=== PATIENT | female | born 1950 | race Caucasian/White ===

== ENCOUNTER 2017-12-27 07:48 | Day surgery (SDC) | payer OTHER ==
[2017-12-27 08:11] VITALS: BMI 31.0
[2017-12-27 08:35] VITALS: TEMP 97.8; O2SAT 100
[2017-12-27] MEDS ORDERED: Lactated Ringer's 500 ML IV SCH (10:15)
--- NOTE | 2017-12-27 10:17 | CP.SDSHP ---
Same Day Surgery H & P - History Proposed Procedure: COLONSCOPY Pre-Op Diagnosis: SEE NOTES - Previous Medical/Surgical History Cardiac: Hypertension Endocrine/Metabolic: Diabetes, Other Misc: Other Pain: 4.Moderate Pain Previous Surgical History: COLON CA / PART. COLON RESECTION - Allergies Allergies: Allergies No Known Allergies Allergy (Verified 12/27/17 08:11) - Physical Exam General Appearance: N Vital Signs: Vital Signs 12/27/17 08:20 Temperature 97.8 F Pulse Rate 80 Respiratory 18 Rate Blood Pressure 141/73 O2 Sat by Pulse 100 Oximetry Neuro: WNL Heart: Other Lungs: WNL GI: Other - {Optional Preform as Required} Breast: WNL Abdomen: Other Rectal: Other Integument: WNL : WNL Ortho: WNL ENT: WNL - Impression Pt. Evaluated Today:Candidate for Anesthesia & Procedure: Yes - Date & Time Time: 10:17 Short Stay Discharge - Short Stay Discharge Admitting Diagnosis/Reason for Visit: MALIGNANT NEOPLASM OF COLON, UNSPECIFIED Disposition: HOME/ ROUTINE
[2017-12-27] MEDS ORDERED: Belladonna-Phenobarbital PO STA (10:20)
[2017-12-27] MEDS ORDERED: Lidocaine Hydrochloride 5 ML INJ ONE (10:23)
[2017-12-27] MEDS ORDERED: Propofol 10 mg/ml Inj (20 ML) ONE (10:23)
[2017-12-27 11:45] VITALS: BP 130/68; PULSE 68; RESP 12
== END 2017-12-27 12:00 | disposition home or self-care (01) ==
LOC: C.ENDO 07:48
PROVIDERS: ATTEND Specialist
DX: D12.3 Benign neoplasm of transverse colon (principal); K64.8 Other hemorrhoids
CPT/HCPCS: 45380; 82948; 88305; J2704; J7040; J7120